=== PATIENT | female | born 1975 | race Caucasian/White ===

== ENCOUNTER → 2018-12-09 14:09 | Outpatient (CLI) | payer OTHER, SELFPAY ==
--- NOTE | 2018-12-09 | DI.MG.S_ITS ---
BILATERAL DIGITAL SCREENING MAMMOGRAM 3D/2D WITH CAD: 12/09/2018 CLINICAL: Routine screening. Family history of breast cancer. Comparison is made to exams dated: 12/08/2017 mammogram, 11/27/2016 mammogram, and 12/28/2014 mammogram - [facility]. There are scattered fibroglandular elements in both breasts. Current study was also evaluated with a Computer Aided Detection (CAD) system. No significant masses, calcifications, or other findings are seen in either breast. There has been no significant interval change. IMPRESSION: NEGATIVE There is no mammographic evidence of malignancy. A 1 year screening mammogram is recommended. This exam was interpreted at Station ID: [id number]. NOTE: For mammograms, a report in lay terms will be sent to the patient. Approximately 15% of breast malignancies will not be visualized mammographically. In the management of a palpable breast mass, a negative mammogram must not discourage biopsy of a clinically suspicious lesion. Electronically Signed By: Makayla gramajo/jaydon:12/09/2018 15:24:22 letter sent: Normal Exam ACR BI-RADS Category 1: Negative 3341F
== END ==
PROVIDERS: PCP Family Medicine; Visit Provider Family Medicine
DX: Z12.31 Encounter for screening mammogram for malignant neoplasm of breast (principal); Z80.3 Family history of malignant neoplasm of breast
CPT/HCPCS: 77063; 77067

== ENCOUNTER → 2020-01-08 13:32 | Outpatient (CLI) | payer OTHER, SELFPAY ==
--- NOTE | 2020-01-08 | DI.MG.S_ITS ---
BILATERAL DIGITAL SCREENING MAMMOGRAM 3D/2D WITH CAD: 01/08/2020 CLINICAL: Routine screening. Family history of breast cancer. Comparison is made to exams dated: 12/09/2018 mammogram, 12/08/2017 mammogram, and 11/27/2016 mammogram - [facility]. There are scattered fibroglandular elements in both breasts. Current study was also evaluated with a Computer Aided Detection (CAD) system. There is a new oval equal density asymmetry with an indistinct and circumscribed margin in the right breast middle depth lateral region seen on the craniocaudal view only. No other significant masses, calcifications, or other findings are seen in either breast. IMPRESSION: INCOMPLETE: NEEDS ADDITIONAL IMAGING EVALUATION The new oval equal density asymmetry in the right breast is indeterminate. Mediolateral and spot compression views as well as additional views with possible ultrasound are recommended. This exam was interpreted at Station ID: [id number]. NOTE: For mammograms, a report in lay terms will be sent to the patient. Approximately 15% of breast malignancies will not be visualized mammographically. In the management of a palpable breast mass, a negative mammogram must not discourage biopsy of a clinically suspicious lesion. Electronically Signed By: Quoc jaime/jaydon:01/08/2020 15:11:04 letter sent: Additional Imaging Needed ACR BI-RADS Category 0: Incomplete 3340F
== END ==
PROVIDERS: PCP Family Medicine; Referring Provider Family Medicine; Visit Provider Family Medicine
DX: Z12.31 Encounter for screening mammogram for malignant neoplasm of breast (principal); Z80.3 Family history of malignant neoplasm of breast
CPT/HCPCS: 77063; 77067

== ENCOUNTER → 2020-01-16 07:59 | Outpatient (CLI) | payer OTHER, SELFPAY ==
--- NOTE | 2020-01-16 | DI.US.S_ITS ---
LIMITED ULTRASOUND OF RIGHT BREAST: 01/16/2020 CLINICAL: Asymmetry right breast. Comparison is made to exams dated: 01/08/2020 mammogram, 12/09/2018 mammogram, 12/08/2017 mammogram, 11/27/2016 mammogram, and 01/16/2020 mammogram - [facility]. Color flow and real-time ultrasound of the right breast 8-10 o'clock region were performed. Onofre scale images of the real-time examination were reviewed. No significant abnormalities were seen sonographically in the right breast. IMPRESSION: PROBABLY BENIGN No significant abnormalities were seen sonographically in the right breast in the region of asymmetry seen on mammogram. A follow-up mammogram and possible ultrasound in 6 months is recommended to demonstrate stability. Exam findings were conveyed to the patient. This exam was interpreted at Station ID: [id number]. Electronically Signed By: Rolly Kunz M.D. slc/:01/16/2020 10:23:51 letter sent: Followup Recommended Ultrasound BI-RADS: 3 Probably benign
--- NOTE | 2020-01-16 | DI.MG.S_ITS ---
UNILATERAL RIGHT DIGITAL DIAGNOSTIC MAMMOGRAM 3D/2D WITH ADDITIONAL VIEWS: 01/16/2020 CLINICAL: Additional evaluation requested from prior study. Comparison is made to exams dated: 01/08/2020 mammogram, 12/09/2018 mammogram, 11/27/2016 mammogram, and 12/28/2014 mammogram - [facility]. There are scattered fibroglandular elements in right breast. There is a new 0.6 cm oval equal density asymmetry with an indistinct and circumscribed margin in the right breast middle depth lateral region seen on the craniocaudal view only. This is seen in additional compression views. This may be located centrally on the ML view and tomosynthesis views at around 9:00 o'clock. No other significant masses or calcifications are seen in the breast. IMPRESSION: INCOMPLETE: NEEDS ADDITIONAL IMAGING EVALUATION The new 0.6 cm oval equal density asymmetry in the right breast is indeterminate. A targeted ultrasound is recommended and will immediately follow. This exam was interpreted at Station ID: [id number]. NOTE: For mammograms, a report in lay terms will be sent to the patient. Approximately 15% of breast malignancies will not be visualized mammographically. In the management of a palpable breast mass, a negative mammogram must not discourage biopsy of a clinically suspicious lesion. Electronically Signed By: Rolly Kunz M.D. slc/:01/16/2020 08:52:03 ACR BI-RADS Category 0: Incomplete 3340F
== END ==
PROVIDERS: PCP Family Medicine; Referring Provider Family Medicine; Visit Provider Family Medicine
DX: R92.8 Other abnormal and inconclusive findings on diagnostic imaging of breast (principal); N64.89 Other specified disorders of breast
CPT/HCPCS: 76642; 77065; G0279

== ENCOUNTER → 2020-07-01 13:21 | Outpatient (CLI) | payer OTHER, SELFPAY ==
--- NOTE | 2020-07-01 | DI.MG.S_ITS ---
UNILATERAL RIGHT DIGITAL DIAGNOSTIC MAMMOGRAM 3D/2D SHORT-TERM FOLLOW-UP: 07/01/2020 CLINICAL: Short term follow up of the right breast. Comparison is made to exams dated: 01/16/2020 mammogram, 01/08/2020 mammogram, and 12/09/2018 mammogram - [facility]. There are scattered fibroglandular elements in right breast. Asymmetry described on the prior stuidies is stable, benign on the basis of stability. No other significant mass, calcification, or other finding in the right breast. IMPRESSION: NEGATIVE There is no mammographic evidence of malignancy. A 1 year screening mammogram is recommended. This exam was interpreted at Station ID: [id number]. NOTE: For mammograms, a report in lay terms will be sent to the patient. Approximately 15% of breast malignancies will not be visualized mammographically. In the management of a palpable breast mass, a negative mammogram must not discourage biopsy of a clinically suspicious lesion. Electronically Signed By: Tyrone Machado M.D. jr/:07/02/2020 10:56:21 letter sent: Normal Exam ACR BI-RADS Category 1: Negative 3341F
== END ==
PROVIDERS: PCP Family Medicine; Referring Provider Family Medicine; Visit Provider Family Medicine
DX: R92.8 Other abnormal and inconclusive findings on diagnostic imaging of breast (principal); N64.89 Other specified disorders of breast
CPT/HCPCS: 77065; G0279

== ENCOUNTER → 2020-12-10 07:52 | Outpatient (CLI) | payer OTHER, SELFPAY ==
[2020-12-10] MEDS: COVID-19 VACC #1, MRNA(MOD) 100 MCG/0.5 ML VIAL IM (07:58)
== END ==
PROVIDERS: PCP Family Medicine; Visit Provider Internal Medicine
DX: Z23 Encounter for immunization (principal)
CPT/HCPCS: 0011A; 91301

== ENCOUNTER → 2021-01-07 07:44 | Outpatient (CLI) | payer OTHER, SELFPAY ==
[2021-01-07] MEDS: COVID-19 VACC #2, MRNA(MOD) 100 MCG/0.5 ML VIAL IM (07:54)
== END ==
PROVIDERS: PCP Family Medicine; Visit Provider Internal Medicine
DX: Z23 Encounter for immunization (principal)
CPT/HCPCS: 0012A; 91301

== ENCOUNTER → 2021-02-16 08:06 | Outpatient (CLI) | payer OTHER, SELFPAY ==
--- NOTE | 2021-02-16 | DI.MG.S_ITS ---
BILATERAL DIGITAL SCREENING MAMMOGRAM 3D/2D WITH CAD: 02/16/2021 CLINICAL: Routine screening. Family history of breast cancer. Comparison is made to exams dated: 07/01/2020 mammogram, 01/16/2020 mammogram, 01/08/2020 mammogram, 12/09/2018 mammogram, and 12/08/2017 mammogram - [facility]. There are scattered fibroglandular elements in both breasts. Current study was also evaluated with a Computer Aided Detection (CAD) system. No significant masses, calcifications, or other findings are seen in either breast. There has been no significant interval change. IMPRESSION: NEGATIVE There is no mammographic evidence of malignancy. A 1 year screening mammogram is recommended. This exam was interpreted at Station ID: [id number]. NOTE: For mammograms, a report in lay terms will be sent to the patient. Approximately 15% of breast malignancies will not be visualized mammographically. In the management of a palpable breast mass, a negative mammogram must not discourage biopsy of a clinically suspicious lesion. Electronically Signed By: Quoc jaime/jaydon:02/16/2021 08:35:49 letter sent: Normal Exam ACR BI-RADS Category 1: Negative 3341F
== END ==
PROVIDERS: PCP Family Medicine; Referring Provider Family Medicine; Visit Provider Family Medicine
DX: Z12.31 Encounter for screening mammogram for malignant neoplasm of breast (principal); Z80.3 Family history of malignant neoplasm of breast
CPT/HCPCS: 77063; 77067

== ENCOUNTER → 2021-02-23 09:20 | Outpatient (CLI) | payer OTHER, SELFPAY ==
--- NOTE | 2021-02-23 | DI.US.S_ITS ---
PROCEDURE: US RENAL COMPLETE INDICATIONS: DEHYDRATION TECHNIQUE: Real-time scanning was performed of the kidneys and bladder, with image documentation. COMPARISON: None. FINDINGS: Kidneys: Kidneys are normal in size. Right kidney measures 10.7 cm long; left kidney measures 12.2 cm long. Right renal cortical thickness is 1.4 cm; left renal cortical thickness is 1.4 cm. Renal cortical echotexture is normal. No hydronephrosis or nephrolithiasis. No suspicious solid mass lesions. Bladder: Pre-void bladder volume is 200 mL. Post-void residual is 0 mL. Pre-void images demonstrate no intraluminal masses or stones. On pre-void images, bilateral ureteral jets are noted with color Doppler interrogation. (Of note, ureteral jets may not be detectable in up to 25% of cases due to insufficient differences in specific gravity between ureteral and bladder urine). Miscellaneous: No free pelvic fluid. IMPRESSION: Normal study. Dictated by: Tyrone Machado M.D. on 02/23/2021 at 10:01 Approved by: Tyrone Machado M.D. on 02/23/2021 at 10:01
== END ==
PROVIDERS: PCP Family Medicine; Referring Provider Family Medicine; Visit Provider Family Medicine
DX: N18.31 Chronic kidney disease, stage 3a (principal); E86.0 Dehydration
CPT/HCPCS: 76770

== ENCOUNTER → 2022-02-27 08:12 | Outpatient (CLI) | payer OTHER, SELFPAY ==
--- NOTE | 2022-02-27 | DI.MG.S_ITS ---
BILATERAL DIGITAL SCREENING MAMMOGRAM 3D/2D WITH CAD: 02/27/2022 CLINICAL: Routine screening. Family history of breast cancer. Comparison is made to exams dated: 02/16/2021 mammogram, 07/01/2020 mammogram, 01/16/2020 mammogram, 01/08/2020 mammogram, and 12/09/2018 mammogram - [facility]. There are scattered fibroglandular elements in both breasts. Current study was also evaluated with a Computer Aided Detection (CAD) system. No significant masses, calcifications, or other findings are seen in either breast. There has been no significant interval change. IMPRESSION: NEGATIVE There is no mammographic evidence of malignancy. A 1 year screening mammogram is recommended. Based on the Tyrer Cuzick model (a risk assessment model) the patient's lifetime risk is 12.6% and her 10 year risk is 2.3%. According to the ACR, ACS, and NCCN guidelines, an annual breast MRI exam along with mammogram is recommended if the patient's lifetime risk is 20% or greater. This exam was interpreted at Station ID: [id number]. NOTE: For mammograms, a report in lay terms will be sent to the patient. Approximately 15% of breast malignancies will not be visualized mammographically. In the management of a palpable breast mass, a negative mammogram must not discourage biopsy of a clinically suspicious lesion. Electronically Signed By: Kirill aden/jaydon:02/27/2022 09:03:30 letter sent: Normal Exam ACR BI-RADS Category 1: Negative 3341F
== END ==
PROVIDERS: PCP Family Medicine; Referring Provider Family Medicine; Visit Provider Family Medicine
DX: Z12.31 Encounter for screening mammogram for malignant neoplasm of breast (principal); Z80.3 Family history of malignant neoplasm of breast
CPT/HCPCS: 77063; 77067

== ENCOUNTER → 2023-03-06 16:24 | Outpatient (CLI) | payer OTHER, SELFPAY ==
--- NOTE | 2023-03-06 16:25 | DI.MG.S_ITS ---
BILATERAL DIGITAL SCREENING MAMMOGRAM 3D/2D WITH CAD: 03/06/2023 CLINICAL: Routine screening. Family history of breast cancer. Comparison is made to exams dated: 02/27/2022 mammogram, 02/16/2021 mammogram, and 01/08/2020 mammogram - [facility]. There are scattered areas of fibroglandular density in both breasts (category b / 25%-50% glandular tissue). Current study was also evaluated with a Computer Aided Detection (CAD) system. No significant masses, calcifications, or other findings are seen in either breast. There has been no significant interval change. IMPRESSION: NEGATIVE There is no mammographic evidence of malignancy. A 1 year screening mammogram is recommended. Based on the Tyrer Cuzick model (a risk assessment model) the patient's lifetime risk is 12.5% and her 10 year risk is 2.4%. According to the ACR, ACS, and NCCN guidelines, an annual breast MRI exam along with mammogram is recommended if the patient's lifetime risk is 20% or greater. This exam was interpreted at Station ID: [id number]. NOTE: For mammograms, a report in lay terms will be sent to the patient. Approximately 15% of breast malignancies will not be visualized mammographically. In the management of a palpable breast mass, a negative mammogram must not discourage biopsy of a clinically suspicious lesion. Electronically Signed By: Makayla gramajo/jaydon:03/07/2023 16:13:20 letter sent: Normal Exam ACR BI-RADS Category 1: Negative 3341F
== END ==
PROVIDERS: PCP Family Medicine; Referring Provider Family Medicine; Visit Provider Family Medicine
DX: Z12.31 Encounter for screening mammogram for malignant neoplasm of breast (principal); Z80.3 Family history of malignant neoplasm of breast
CPT/HCPCS: 77063; 77067

== ENCOUNTER 2023-05-31 09:08 | Day surgery (SDC) | payer OTHER, SELFPAY ==
--- NOTE | 2023-05-31 | PATH_ITS ---
[facility] Accession Number: [id number] No. of containers..01 Tissue . 01 Material submitted: . colon - ASCENDING POLYP . 01 Diagnosis: Ascending Colon, Polyp: Tubular adenoma. JN 06/05/2023 1414 Local . 01 Electronically signed: . Margie Guerra MD, Pathologist NPI- [id number] . 01 Gross description: . ASCENDING POLYP: Received in formalin is 1 fragment(s) of rodriguez, soft tissue measuring 0.3 x 0.2 x 0.2 cm submitted entirely in 1 cassette(s) /AAY 06/02/2023 0151 Local . 01 Microscopic: . . . 01 Pathologist provided ICD-10: D12.6 . 01 CPT . 154322 Specimen Comment: A courtesy copy of this report has been sent to [phone] Performed at: 01 [facility] [address] [place] [address], [place], [place] [id number] MD Quoc Hernandez MD Phone: [phone]
[2023-05-31] MEDS: LACTATED RINGERS 1,000 ML 42 ML IV (09:26)
[2023-05-31 09:39] VITALS: BP 104/69; PULSE 74; RESP 16; TEMP 36.5; O2SAT 100; BMI 34.7
--- NOTE | 2023-05-31 10:15 | PM.HP.1 ---
History of Present Illness History of Present Illness Date Patient Seen: 05/31/23 Time Patient Seen: 10:15 Chief complaint: Colonoscopy Narrative: Angeline a 48-year-old woman who is here for first colonoscopy for screening. She has no family history of colon cancer. [facility] Social History household members: spouse Smoking Status: Never smoker alcohol intake: current Meds Home Medications and Allergies Home Medications Medication Instructions Recorded Confirmed Type atorvastatin 40 mg tablet 40 mg PO DAILY 05/31/23 05/31/23 History fluticasone propionate 50 2 spray intranasal DAILY allergies 05/31/23 05/31/23 History mcg/actuation nasal spray,suspension loratadine 10 mg PO DAILY 05/31/23 05/31/23 History Allergies Allergy/AdvReac Type Severity Reaction Status Date / Time No Known Drug Allergies Allergy Verified 05/31/23 09:30 Exam Vital Signs (past 8 hours): - 05/31/23 09:39 Temperature 97.7 F Pulse Rate 74 Respiratory Rate 16 Blood Pressure 104/69 Pulse Oximetry 100 Oxygen Delivery Method Room Air Oxygen Delivery Method Room Air Const Orientation: alert and awake Resp Effort & Inspection: normal respiratory effort Assessment & Plan Assessment and plan (1) Colon cancer screening: Status: Acute Plan We reviewed the risks and benefits of colonoscopy for colon cancer screening and she would like proceed.
--- NOTE | 2023-05-31 11:03 | PM.OP.COLON ---
Operative Date/Time/Diagnoses Date of procedure: 05/31/23 Time of procedure: 11:03 Pre-op diagnosis: Colon cancer screening Post-op diagnosis: same Procedure & Clinicians Study performed: Colonoscopy Same procedure as scheduled: Yes Surgeon: Cas Trevino Procedure Notes Procedure in detail: Surgeon: Cas Trevino MD Anesthesia: Lucia Chepe Procedure: The patient was brought to the endoscopy suite, placed in left lateral decubitus position. The patient was connected to monitoring devices. A time-out was performed. Sedation was administered. Once the patient was adequately sedated, a digital rectal exam was performed and an external hemorrhoid was noted. The scope was then inserted and advanced to the cecum where the appendiceal orifice was identified and photographed. The scope was then slowly withdrawn over greater than 6 minutes. The mucosa was thoroughly inspected. There was a 5 mm polyp in the ascending colon removed with cold snare. The scope was retroflexed in the rectum. No other abnormalities were seen. The scope was straightened and removed. The patient was awakened and brought to recovery. Scope withdrawal time: 7 minutes Sedation time: 10 minutes EBL: 2 mL Findings: 5 mm polyp in the ascending colon Post-procedure Disposition: PACU
[2023-05-31 11:07] VITALS: BP 95/65; PULSE 74; RESP 14; TEMP 36.6; O2SAT 95
[2023-05-31 11:11] VITALS: BP 104/73; PULSE 74; RESP 18; O2SAT 96
[2023-05-31 11:17] VITALS: BP 115/75; PULSE 70; RESP 18; TEMP 36.6; O2SAT 97
[2023-05-31 11:20] VITALS: BP 105/71; PULSE 65; RESP 16; O2SAT 99
== END 2023-05-31 11:39 | disposition home or self-care (01) ==
PROVIDERS: PCP Family Medicine; Referring Provider Surgery; Visit Provider Surgery
PROC: 0DJD8ZZ Inspection of Lower Intestinal Tract, Via Natural or Artificial Opening Endoscopic (ICD-10-PCS; CPT 45378; principal; 2023-05-31 10:15)
DX: Z12.11 Encounter for screening for malignant neoplasm of colon (principal); D12.2 Benign neoplasm of ascending colon
CPT/HCPCS: 45385; J2704

== ENCOUNTER → 2024-03-24 18:06 | Outpatient (CLI) | payer OTHER, SELFPAY | PROVIDERS: PCP Family Medicine; Visit Provider Nurse Practitioner Family | DX: J02.9 Acute pharyngitis, unspecified (principal) | CPT/HCPCS: 87070 ==

== ENCOUNTER → 2024-04-04 07:42 | Outpatient (CLI) | payer OTHER, SELFPAY ==
--- NOTE | 2024-04-04 07:43 | DI.MG.S_ITS ---
BILATERAL DIGITAL SCREENING MAMMOGRAM 3D/2D WITH CAD: 04/04/2024 CLINICAL: Routine screening. Family history of breast cancer. Comparison is made to exams dated: 03/06/2023 mammogram, 02/27/2022 mammogram, and 02/16/2021 mammogram - [facility]. There are scattered areas of fibroglandular density in both breasts (category b / 25%-50% glandular tissue). Current study was also evaluated with a Computer Aided Detection (CAD) system. No significant masses, calcifications, or other findings are seen in either breast. There has been no significant interval change. IMPRESSION: NEGATIVE There is no mammographic evidence of malignancy. A 1 year screening mammogram is recommended. Based on the Tyrer Cuzick model (a risk assessment model) the patient's lifetime risk is 12.4% and her 10 year risk is 2.7%. According to the ACR, ACS, and NCCN guidelines, an annual breast MRI exam along with mammogram is recommended if the patient's lifetime risk is 20% or greater. This exam was interpreted at Station ID: [id number]. NOTE: For mammograms, a report in lay terms will be sent to the patient. Approximately 15% of breast malignancies will not be visualized mammographically. In the management of a palpable breast mass, a negative mammogram must not discourage biopsy of a clinically suspicious lesion. Electronically Signed By: Kirill aden/jaydon:04/04/2024 09:12:47 letter sent: Normal Exam ACR BI-RADS Category 1: Negative 3341F
== END ==
LOC: MAMMO 07:42
PROVIDERS: PCP Family Medicine; Referring Provider Family Medicine; Visit Provider Family Medicine
DX: Z12.31 Encounter for screening mammogram for malignant neoplasm of breast (principal); Z80.3 Family history of malignant neoplasm of breast; R92.323 Mammographic fibroglandular density, bilateral breasts
CPT/HCPCS: 77063; 77067

== ENCOUNTER → 2025-04-29 08:40 | Outpatient (CLI) | payer OTHER, SELFPAY ==
--- NOTE | 2025-04-29 08:41 | DI.MG.S_ITS ---
MM diagnostic mammo unilat LT, US breast LT limited: 04/29/2025 BI-RADS: 3 CLINICAL: 50-year old female for left diagnostic mammogram and left diagnostic breast ultrasound that is a recall from screening on 04/15/2025. Tyrer-Cuzick lifetime risk of 16.5%. No personal or first-degree family history of breast cancer. Current reported family history of breast cancer: sister's daughter, maternal aunt, second maternal aunt and third maternal aunt. PRIOR EXAMS Mammogram(s): 04/15/2025. Other Exams on 04/04/2024, 03/06/2023, 02/27/2022, MAMMOGRAPHY TECHNIQUE: 2D and 3D (tomosynthesis) digital mammographic views obtained, with additional images as needed for full coverage. Current study was also evaluated with a Computer Aided Detection (CAD) system. ULTRASOUND TECHNIQUE TARGETED Left Breast Ultrasound: Real-time ultrasound exam was performed focused to area of clinical and/or imaging concern. DENSITY Left: B. There are scattered areas of fibroglandular density. MAMMOGRAPHY FINDINGS Left: CC only, Central, Posterior depth: There is an asymmetry seen only on one view. ULTRASOUND FINDINGS Left: Central, Retroareolar. Previous report: CC only, Central: There is no suspicious sonographic finding. IMPRESSION: Left: Central, Retroareolar. Previous report: CC only, Central * Probably Benign. RECOMMENDATIONS Left: Central, Retroareolar * Six month followup with diagnostic mammography. COMMENTS: Finding persists on additional views today without sonographic correlate. Compared to more remote images, this area is mildly more prominent. OVERALL ASSESSMENT CATEGORY BI-RADS-3: Probably Benign. ELECTRONICALLY SIGNED: Scottie Cook M.D. on 04/29/2025 at 09:43:53 AM PT Interpreting Station ID: [id number]
== END ==
LOC: MAMMO 08:41
PROVIDERS: PCP Family Medicine; Referring Provider Family Medicine; Visit Provider Family Medicine
DX: R92.8 Other abnormal and inconclusive findings on diagnostic imaging of breast (principal); Z80.3 Family history of malignant neoplasm of breast
CPT/HCPCS: 76642; 77065; G0279